=== PATIENT | male | born 1955 | race Caucasian/White ===

== ENCOUNTER 2017-09-17 12:20 | Emergency (ER) | payer OTHER ==
[~2017-09-17] VITALS: Ht 175.3 cm; Wt 98.0 kg
[2017-09-17 12:23] VITALS: BP 150/73; PULSE 94; RESP 18; TEMP 97.8; O2SAT 96
[2017-09-17 12:45] VITALS: RESP 18; O2SAT 95
[2017-09-17] MEDS ORDERED: MORPHINE SULFATE 4 MG/ML INJ IV PUSH ONE (12:45)
[2017-09-17] MEDS: SODIUM CHLORIDE 0.9% FLUSH 10 ML FLUSH IVF PRN ×2 (12:52→13:26)
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
[2017-09-17] MEDS ORDERED: ONDANSETRON HCL 4 MG/2 ML VIAL ONE (13:20)
[2017-09-17 13:24] VITALS: BP 140/86; PULSE 89; RESP 18; O2SAT 95
[2017-09-17 13:24] LABS: AUTOMATED NEUTROPHIL # 9.4 TH/MM3 (1.8-7.7); BASOPHIL % 0.4 % (0.0-2.0); EOSINOPHIL # 0.2 TH/MM3 (0-0.4); EOSINOPHIL % 1.4 % (0.0-4.0); HEMATOCRIT 42.9 % (39.0-51.0); HEMOGLOBIN 14.7 GM/DL (13.0-17.0); LYMPH % 19.3 % (9.0-44.0); LYMPHOCYTE # 2.5 TH/MM3 (1.0-4.8); MEAN CORPUSCULAR HEMOGLOBIN 30.2 PG (27.0-34.0); MEAN CORPUSCULAR HGB CONC 34.3 % (32.0-36.0); MEAN PLATELET VOLUME 7.4 FL (7.0-11.0); MONOCYTE # 0.9 TH/MM3 (0-0.9); NEUT % 71.9 % (16.0-70.0); PLATELET COUNT 268 TH/MM3 (150-450); RED BLOOD COUNT 4.87 MIL/MM3 (4.50-5.90); RED CELL DISTRIBUTION WIDTH 13.7 % (11.6-17.2)
[2017-09-17] MEDS ORDERED: ONDANSETRON HCL 4 MG/2 ML VIAL IV PUSH ONE (13:30)
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
[2017-09-17] MEDS ORDERED: IOHEXOL 350 MG/ML 10 ML VIAL (for RAD DIAG) IVCONTRAST ONE (13:39)
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
[2017-09-17 13:46] VITALS: BP 122/72; PULSE 89; RESP 17; TEMP 97.8; O2SAT 96
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
[2017-09-17 13:47] LABS: BICARBONATE 26.6 MEQ/L (21.0-32.0); CALCIUM 8.8 MG/DL (8.5-10.1); CREATININE 1.07 MG/DL (0.60-1.30)
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
[2017-09-17] MEDS ORDERED: MOBI7.5T PO (13:57)
[2017-09-17] MEDS ORDERED: AMPH1TAB29 PO (13:57)
[2017-09-17] MEDS ORDERED: MULTTAB67 PO (13:58)
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
[2017-09-17 14:31] LABS: PROTHROMBIN TIME - PATIENT 10.3 SEC (9.8-11.6)
[2017-09-17 14:59] VITALS: BP 157/88; PULSE 96; RESP 17; TEMP 97.8; O2SAT 99
--- NOTE | 2017-09-17 15:08 | PD ---
Physical Exam Date Seen by Provider: Sep 17, 2017 Time Seen by Provider: 15:07 Narrative For full history and physical examination please see previous providers note. I was asked to repair scalp laceration. Data Data Last Documented VS Vital Signs Date Time Temp Pulse Resp B/P (MAP) Pulse Ox O2 Delivery O2 Flow Rate FiO2 09/17/17 14:59 97.8 96 17 157/88 (111) 99 Room Air Orders Orders Hip, Uni(Ap&Lat) W Ap Pelvis (09/17/17 12:36) Basic Metabolic Panel (Bmp) (09/17/17 12:38) Complete Blood Count With Diff (09/17/17 12:38) Prothrombin Time / Inr (Pt) (09/17/17 12:38) Act Partial Throm Time (Ptt) (09/17/17 12:38) Type And Screen (09/17/17 12:38) Chest, Single Ap (09/17/17 12:38) Ct Brain W/O Iv Contrast(Rout) (09/17/17 12:38) Ct Cerv Spine W/O Contrast (09/17/17 12:38) Ct Abd/Pel W Iv Contrast(Rout) (09/17/17 12:38) Ct Thorax/ Chest W Iv Contrast (09/17/17 12:38) Ct Thor Spine W Iv Contrast (09/17/17 12:38) Ct Lumb Spine W Iv Contrast (09/17/17 12:38) Electrocardiogram (09/17/17 12:38) Iv Access Insert/Monitor (09/17/17 12:38) Ecg Monitoring (09/17/17 12:38) Oximetry (09/17/17 12:38) Oxygen Administration (09/17/17 12:38) Morphine Inj (Morphine Inj) (09/17/17 12:45) Sodium Chloride 0.9% Flush (Ns Flush) (09/17/17 12:45) I-Stat Profile (09/17/17 12:59) Ondansetron Inj (Zofran Inj) (09/17/17 13:20) Ondansetron Inj (Zofran Inj) (09/17/17 13:30) Iohexol 350 Inj (Omnipaque 350 Inj) (09/17/17 13:39) Labs Laboratory Tests Test 09/17/17 13:00 09/17/17 13:50 White Blood Count 13.0 TH/MM3 Red Blood Count 4.87 MIL/MM3 Hemoglobin 14.7 GM/DL Bedside Hemoglobin 14.6 G/DL Hematocrit 42.9 % Bedside Hematocrit 43.0 % Mean Corpuscular Volume 88.0 FL Mean Corpuscular Hemoglobin 30.2 PG Mean Corpuscular Hemoglobin Concent 34.3 % Red Cell Distribution Width 13.7 % Platelet Count 268 TH/MM3 Mean Platelet Volume 7.4 FL Neutrophils (%) (Auto) 71.9 % Lymphocytes (%) (Auto) 19.3 % Monocytes (%) (Auto) 7.0 % Eosinophils (%) (Auto) 1.4 % Basophils (%) (Auto) 0.4 % Neutrophils # (Auto) 9.4 TH/MM3 Lymphocytes # (Auto) 2.5 TH/MM3 Monocytes # (Auto) 0.9 TH/MM3 Eosinophils # (Auto) 0.2 TH/MM3 Basophils # (Auto) 0.0 TH/MM3 CBC Comment DIFF FINAL Differential Comment Bedside Sodium 138 MMOL/L Blood Urea Nitrogen 13 MG/DL Creatinine 1.07 MG/DL Random Glucose 129 MG/DL Calcium Level 8.8 MG/DL Sodium Level 137 MEQ/L Potassium Level 3.7 MEQ/L Chloride Level 102 MEQ/L Carbon Dioxide Level 26.6 MEQ/L Bedside Potassium 3.7 MMOL/L Bedside Chloride 99 MMOL/L Anion Gap 8 MEQ/L Bedside Blood Urea Nitrogen 12 MG/DL Bedside Creatinine 1.1 MG/DL Estimat Glomerular Filtration Rate 70 ML/MIN Bedside Glucose 130 MG/DL Prothrombin Time 10.3 SEC Prothromb Time International Ratio 1.0 RATIO Activated Partial Thromboplast Time 20.8 SEC [facility] Supervised Visit with RAYNA: Yes Procedures Procedure Narrative LACERATION LOCATION: Occipital area of the scalp. LENGTH: 3 cm NUMBER OF STITCHES/CHANTEL: 5 chantel REPAIR: The area of the laceration was prepped with Betadine and sterilely draped. The laceration was infiltrated with 1% lidocaine. The wound was copiously irrigated and explored without evidence of foreign body, tendon injury or neurovascular injury. The wound was closed using chantel. This was a 1 layer repair. A sterile dressing was applied. The patient was advised to keep the dressing clean and dry. Patient tolerated the procedure well. Cindy Linares Sep 17, 2017 15:08
[2017-09-17] MEDS ORDERED: NORC5TAB PO (15:27)
[2017-09-17] MEDS ORDERED: MECL1TAB42 PO (15:27)
[2017-09-17] MEDS ORDERED: GETGO ROLLING W1 MI1 (15:32)
[2017-09-17 15:40] VITALS: BP 138/81; TEMP 97.8
--- NOTE | 2017-09-18 13:54 | EKG ---
Date Performed: 09/17/2017 Time Performed: 12:52:32 PTAGE: 62 years EKG: Sinus rhythm MODERATE INTRAVENTRICULAR CONDUCTION DELAY BORDERLINE ECG NO PREVIOUS TRACING DOCTOR: Britton Hilton Interpretating Date/Time 09/18/2017 13:52:34
== END 2017-09-17 15:40 | disposition home or self-care (01) ==
LOC: NEPC 12:20
DX: S32.502A Unspecified fracture of left pubis, initial encounter for closed fracture (principal); S01.01XA Laceration without foreign body of scalp, initial encounter; R42 Dizziness and giddiness; V13.4XXA Pedal cycle driver injured in collision with car, pick-up truck or van in traffic accident, initial encounter; Y93.55 Activity, bike riding; Z96.642 Presence of left artificial hip joint
CPT/HCPCS: 12002; 70450; 71045; 71260; 72125; 72129; 72132; 73502; 74177; 80048; 85025; 85610; 85730; 86850; 86900; 86901; 93005; 96374; 96375; 99285; J2270; J2405; Q9967